=== PATIENT | female | born 1990 | race Caucasian/White ===

== ENCOUNTER 2018-03-05 12:43 | Inpatient (IN) ==
[2018-03-05] MEDS ORDERED: SODIUM CHLORIDE 0.9% 1,000 ML IV STA ×2 (13:30→15:47)
[2018-03-05] MEDS ORDERED: PANTOPRAZOLE 40 MG VIAL IV STA (13:30)
[2018-03-05] MEDS ORDERED: ONDANSETRON 4 MG/2 ML VIAL IV STA (13:30)
[2018-03-05 14:58] LABS: Basophils # 0.1 10*3/uL (0.0-0.2); Basophils % 0.8 % (0.0-0.8); Eosinophils # 0.1 10*3/uL (0.0-0.87); Eosinophils % 0.6 % (0.00-10.9); Hemoglobin 13.8 GM/DL (12.0-16.0); Immature Granulocytes % 0.2 %; Immature Granulocytes Absolute 0.02 #; Lymphocytes # 1.6 10*3/uL (1.4-4.0); Lymphocytes % 17.6 % (21.3-54.2); Mean Corpuscular HGB Conc 32.9 GM/DL (32-36); Mean Corpuscular Hemoglobin 30 PG (27-34); Mean Corpuscular Volume 90.7 FL (87-102); Mean Platelet Volume 11.2 FL (9.6-12.0); Monocytes # 0.4 10*3/uL (0.11-0.8); Neutrophils # 6.9 10*3/uL (1.4-7.4); Neutrophils % 76.8 % (38.7-73.9); Platelet Count 254 T/CUMM (130-400); Red Blood Count 4.63 MC/CUMM (3.8-5.5)
[2018-03-05 15:28] LABS: Apearance,Urine CLEAR (Clear); Bilirubin,Urine Negative (Negative); Blood, Urine Negative (Negative); Glucose,Urine (UA) >=500 mg/dL (Negative); Hyaline Casts,Urine 12 /LPF (0-3); Ketones,Urine 80 mg/dL (Negative); Mucus,Urine Occasional /LPF (Occasional); Nitrite,Urine Negative (Negative); Protein,Urine Negative; RBC,Urine <1 /HPF (0-4); Squamous Epithelial Cell,Urine Occasional /HPF (0-10); Urine Color Yellow (Yellow); Urine Specific Gravity 1.022 (1.001-1.035); Urine Urobilinogen < 2.0 EU/DL (0.2-1.0); WBC,Urine 2 /HPF (0-6)
[2018-03-05 15:30] LABS: Albumin 3.5 G/DL (3.4-5.0); Bilirubin,Total 0.9 MG/DL (0.2-1.0); Calcium 8.3 MG/DL (8.5-10.1); Osmolality,Calculated 276.2 MOS/KG (273-304); Potassium 4.6 MMOL/L (3.5-5.1); Total Protein 8.1 G/DL (6.4-8.3)
[2018-03-05] MEDS ORDERED: INSULIN REGULAR 100 UNIT/ML IV STA (15:47)
[2018-03-05] MEDS ORDERED: PROMETHAZINE 25 MG/1 ML VIAL ONE (16:44)
[2018-03-05 17:25] LABS: ABG Base Excess -17.5 MMOL/L (-2.5-2.5); ABG HCO3 11.8 MMOL/L (20-26); ABG PCO2 24.5 MM HG (35-48); ABG TCO2 8.6 MMOL/L (23-27)
[2018-03-05 17:27] LABS: ABG PH 7.201 (7.35-7.45)
[2018-03-05] MEDS ORDERED: DEXTROSE 50% 25 GM/50 ML SYRINGE IV PRN ×2 (20:28)
[2018-03-05] MEDS ORDERED: SODIUM PHOSPHATE IV PRN (20:28)
[2018-03-05] MEDS ORDERED: SODIUM BICARB INJ 100 MEQ in STERILE WATER INJ 400 ML IV PRN (20:28)
[2018-03-05] MEDS ORDERED: MAGNESIUM SULF RIDER 4 GM in PREMIX 1 EACH IV PRN (20:28)
[2018-03-05] MEDS ORDERED: SODIUM CHLORIDE 0.9% IV PRN (20:28)
[2018-03-05] MEDS ORDERED: SODIUM CHLORIDE 0.9% 1,000 ML IV ONE (20:28)
[2018-03-05] MEDS ORDERED: INSULIN REGULAR 100 UNIT/ML IV ONE (20:28)
[2018-03-05] MEDS ORDERED: MAGNESIUM SULF RIDER 2 GM in PREMIX 1 EACH IV PRN (20:28)
[2018-03-05] MEDS ORDERED: ONDANSETRON 4 MG/2 ML VIAL ONE (21:04)
[2018-03-05 21:12] LABS: Calcium 8.6 MG/DL (8.5-10.1); Osmolality,Calculated 273.2 MOS/KG (273-304); Potassium 4.4 MMOL/L (3.5-5.1)
[2018-03-05] MEDS: ONDANSETRON 4 MG/2 ML VIAL IV PRN (21:20)
[2018-03-05] MEDS: INSULIN REGULAR DRIP 100 ML IV SCH (21:35)
[2018-03-05] MEDS: traZODone 50 MG TABLET PO SCH (22:23)
[2018-03-05] MEDS: PANTOPRAZOLE 40 MG VIAL IV SCH (22:23)
[2018-03-05] MEDS ORDERED: SODIUM CHLORIDE 0.9% 1,000 ML IV SCH (22:26)
[2018-03-05] MEDS ORDERED: DEXTROSE 5% NACL 0.9% 1,000 ML IV SCH (22:30)
[2018-03-05] MEDS: SODIUM CHLORIDE 0.9% 1,000 ML IV SCH (23:24)
[2018-03-06] MEDS: SODIUM CHLORIDE 0.9% 1,000 ML IV SCH ×6 (00:19→17:01)
[2018-03-06] MEDS: DEXTROSE 5% NACL 0.9% 1,000 ML IV SCH ×3 (03:00→18:39)
[2018-03-06] MEDS: ONDANSETRON 4 MG/2 ML VIAL IV PRN ×2 (03:21→09:57)
[2018-03-06 03:34] LABS: Calcium 7.3 MG/DL (8.5-10.1); Osmolality,Calculated 281.3 MOS/KG (273-304); Potassium 3.5 MMOL/L (3.5-5.1)
[2018-03-06 04:35] LABS: Basophils # 0.1 10*3/uL (0.0-0.2); Basophils % 0.7 % (0.0-0.8); Eosinophils # 0.2 10*3/uL (0.0-0.87); Eosinophils % 1.7 % (0.00-10.9); Hematocrit 34.7 VOL% (35.7-47.0); Hemoglobin 11.4 GM/DL (12.0-16.0); Immature Granulocytes % 0.3 %; Immature Granulocytes Absolute 0.03 #; Lymphocytes # 2.3 10*3/uL (1.4-4.0); Lymphocytes % 25.6 % (21.3-54.2); Mean Corpuscular HGB Conc 32.9 GM/DL (32-36); Mean Corpuscular Hemoglobin 30 PG (27-34); Mean Corpuscular Volume 90.6 FL (87-102); Mean Platelet Volume 10.8 FL (9.6-12.0); Monocytes # 0.9 10*3/uL (0.11-0.8); Monocytes % 9.9 % (1.7-12.7); Neutrophils # 5.6 10*3/uL (1.4-7.4); Neutrophils % 61.8 % (38.7-73.9); Platelet Count 222 T/CUMM (130-400); Red Blood Count 3.83 MC/CUMM (3.8-5.5); Red Cell Distribution Width 12.2 % (9.3-17.3); White Blood Count 9.1 T/CUMM (4-12)
[2018-03-06 05:17] LABS: Calcium 7.3 MG/DL (8.5-10.1); Osmolality,Calculated 278.4 MOS/KG (273-304); Potassium 3.8 MMOL/L (3.5-5.1)
[2018-03-06] MEDS: POTASSIUM CHLORIDE RIDER 10 MEQ in PREMIX 1 EACH IV PRN (07:26)
[2018-03-06] MEDS: INSULIN REGULAR DRIP 100 ML IV SCH ×2 (07:31→23:23)
[2018-03-06 08:16] LABS: Calcium 7.4 MG/DL (8.5-10.1); Osmolality,Calculated 278.3 MOS/KG (273-304); Potassium 3.5 MMOL/L (3.5-5.1)
[2018-03-06] MEDS ORDERED: LINACLOTIDE 72 MCG PO SCH (09:00)
[2018-03-06] MEDS: PANTOPRAZOLE 40 MG VIAL IV SCH ×2 (09:01→21:44)
[2018-03-06] MEDS: GABAPENTIN 300 MG CAPSULE PO SCH ×3 (09:01→21:43)
[2018-03-06] MEDS: DEXT 5% NACL 0.45% KCL 20 MEQ 20 MEQ/1,000 ML BAG IV SCH ×3 (10:01→17:01)
[2018-03-06] MEDS ORDERED: SODIUM CHLORIDE 0.45% 1,000 ML IV SCH (10:26)
[2018-03-06] MEDS: IBUPROFEN 600 MG TABLET PO PRN (12:00)
[2018-03-06] MEDS: SODIUM CHLOR 0.45% KCL 20 MEQ 20 MEQ/1,000 ML BAG IV SCH ×2 (12:00→17:01)
[2018-03-06 13:09] LABS: Calcium 7.8 MG/DL (8.5-10.1); Osmolality,Calculated 280.7 MOS/KG (273-304); Potassium 3.7 MMOL/L (3.5-5.1)
[2018-03-06] MEDS ORDERED: INSULIN GLARGINE 100 UNIT/ML SUBCUT PRN (16:14)
[2018-03-06 16:40] LABS: Calcium 7.9 MG/DL (8.5-10.1); Osmolality,Calculated 276.1 MOS/KG (273-304); Potassium 3.5 MMOL/L (3.5-5.1)
[2018-03-06] MEDS: traZODone 50 MG TABLET PO SCH (21:43)
[2018-03-07] MEDS: DEXTROSE 5% NACL 0.9% 1,000 ML IV SCH ×2 (02:47→18:19)
[2018-03-07 06:29] LABS: Calcium 7.5 MG/DL (8.5-10.1); Osmolality,Calculated 287.8 MOS/KG (273-304); Potassium 3.6 MMOL/L (3.5-5.1)
[2018-03-07] MEDS: POTASSIUM CHLORIDE RIDER 10 MEQ in PREMIX 1 EACH IV PRN (07:17)
[2018-03-07] MEDS: IBUPROFEN 600 MG TABLET PO PRN ×2 (09:23→15:02)
[2018-03-07] MEDS: PANTOPRAZOLE 40 MG TABLET PO SCH ×2 (09:25→21:26)
[2018-03-07] MEDS: GABAPENTIN 300 MG CAPSULE PO SCH ×3 (09:25→21:26)
[2018-03-07] MEDS: INSULIN LISPRO 100 UNIT/ML SUBCUT SCH ×3 (11:09→21:27)
[2018-03-07] MEDS ORDERED: INSULIN GLARGINE 100 UNIT/ML SUBCUT SCH (21:00)
[2018-03-07] MEDS: traZODone 50 MG TABLET PO SCH (21:26)
[2018-03-08] MEDS: INSULIN LISPRO 100 UNIT/ML SUBCUT SCH (07:56)
[2018-03-08 08:02] VITALS: BP 111/55
[2018-03-08] MEDS: PANTOPRAZOLE 40 MG TABLET PO SCH (08:21)
[2018-03-08] MEDS: GABAPENTIN 300 MG CAPSULE PO SCH (08:21)
== END 2018-03-08 11:45 | disposition home or self-care (01) | DRG 420 ==
LOC: EDUNIT# → EDBD → N.ED 12:43 → SUATTDRO 17:21 → N.EDINP 17:21 → N.CC 19:38 → N.4E 03-07 18:22
PROVIDERS: ADMIT Internal Medicine; ATTEND Internal Medicine

== ENCOUNTER 2021-02-09 16:33 | Inpatient (IN) ==
[2021-02-09] MEDS ORDERED: PROMETHAZINE 25 MG/1 ML VIAL ONE (21:05)
[2021-02-09] MEDS ORDERED: ONDANSETRON 4 MG/2 ML VIAL ONE ×2 (21:05→21:12)
[2021-02-09] MEDS ORDERED: PROMETHAZINE 25 MG/1 ML VIAL IM STA (21:10)
[2021-02-09] MEDS ORDERED: ONDANSETRON 4 MG/2 ML VIAL IV STA ×2 (21:10→22:08)
[2021-02-09] MEDS ORDERED: INSULIN REGULAR 100 UNIT/ML SUBCUT STA (21:27)
[2021-02-09] MEDS ORDERED: SODIUM CHLORIDE 0.9% 1,000 ML IV SCH (21:30)
[2021-02-09 22:01] LABS: Basophils % 0.2 % (0.0-0.8); Eosinophils % 0.2 % (0.00-10.9); Hematocrit 32.5 VOL% (35.7-47.0); Hemoglobin 10.9 GM/DL (12.0-16.0); Immature Granulocytes % 0.6 %; Immature Granulocytes Absolute 0.11 #; Lymphocytes # 0.7 10*3/uL (1.4-4.0); Lymphocytes % 3.9 % (21.3-54.2); Mean Corpuscular HGB Conc 33.5 GM/DL (32-36); Mean Corpuscular Volume 90.5 FL (87-102); Mean Platelet Volume 10.4 FL (9.6-12.0); Neutrophils % 94.1 % (38.7-73.9); Platelet Count 299 T/CUMM (130-400); Red Blood Count 3.59 MC/CUMM (3.8-5.5); Red Cell Distribution Width 12.4 % (9.3-17.3); White Blood Count 17.1 T/CUMM (4-12)
[2021-02-09] MEDS ORDERED: METOCLOPRAMIDE 10 MG/2 ML VIAL IV STA (22:07)
[2021-02-09 22:30] LABS: ABG Base Excess -11.1 MMOL/L (-2.5-2.5); ABG HCO3 15.8 MMOL/L (20-26); ABG Oxygen Saturation 97.8 % (95-100); ABG PCO2 26.1 MM HG (35-48); ABG PH 7.325 (7.35-7.45); Allen Test Positive; Pt O2 Delivery Device Room Air
[2021-02-09 22:34] LABS: Albumin 2.1 G/DL (3.4-5.0); Bilirubin,Total 0.6 MG/DL (0.20-1.00); Calcium 6.7 MG/DL (8.5-10.1); Hypochromia Slight; Lymphocytes 5 % (20-55); Platelet Estimate Normal; Potassium 2.9 MMOL/L (3.5-5.1); Segmented Neutrophils 93 % (50-85); Total Cells Counted 100; Total Protein 6.1 G/DL (6.4-8.2)
[2021-02-09] MEDS ORDERED: POTASSIUM CHLORIDE RIDER 20 MEQ/100 ML PREMIX IV STA (22:36)
[2021-02-09] MEDS ORDERED: POTASSIUM CHLORIDE RIDER 20 MEQ/200 ML PREMIX IV STA (22:39)
[2021-02-10] MEDS ORDERED: SCOPOLAMINE 1.5 MG PATCH TRANSDERM ONE (01:00)
[2021-02-10 01:09] LABS: Bilirubin,Urine Negative (Negative); Blood, Urine Negative (Negative); Glucose,Urine (UA) >=500 mg/dL (Negative); Ketones,Urine 80 mg/dL (Negative); Mucus,Urine Occasional /LPF (Occasional); Nitrite,Urine Negative (Negative); Protein,Urine 30 MG/DL; RBC,Urine 2 /HPF (0-4); Squamous Epithelial Cell,Urine Occasional /HPF (0-10); Urine Appearance CLEAR (Clear); Urine Color Yellow (Yellow); Urine Specific Gravity 1.024 (1.001-1.035); Urine Urobilinogen < 2.0 EU/DL (<2.0)
[2021-02-10 01:12] LABS: Albumin 2.8 G/DL (3.4-5.0); Bilirubin,Total 0.6 MG/DL (0.20-1.00); Calcium 8.1 MG/DL (8.5-10.1); Osmolality,Calculated 285.5 MOS/KG (273-304); Potassium 3.4 MMOL/L (3.5-5.1); Total Protein 7.5 G/DL (6.4-8.2)
[2021-02-10] MEDS ORDERED: SODIUM CHLORIDE 0.9% 1,000 ML IV SCH (01:12)
[2021-02-10] MEDS ORDERED: PROMETHAZINE 25 MG SUPP RECTAL PRN (01:12)
[2021-02-10] MEDS ORDERED: BISACODYL 10 MG SUPP RECTAL PRN (01:12)
[2021-02-10] MEDS ORDERED: MAGNESIUM HYDROXIDE SUSP 30 ML UDCUP PO PRN (01:12)
[2021-02-10] MEDS ORDERED: ACETAMINOPHEN 325 MG TABLET PO PRN (01:12)
[2021-02-10] MEDS ORDERED: PROMETHAZINE 25 MG/1 ML VIAL IM ONE (01:20)
[2021-02-10] MEDS: SCOPOLAMINE 1.5 MG PATCH TRANSDERM SCH (01:24)
[2021-02-10] MEDS ORDERED: DEXTROSE 50% 25 GM/50 ML SYRINGE IV PRN (01:41)
[2021-02-10 01:54] LABS: ABG Base Excess -11.1 MMOL/L (-2.5-2.5); ABG HCO3 15.8 MMOL/L (20-26); ABG Oxygen Saturation 97.8 % (95-100); ABG PCO2 24.5 MM HG (35-48); ABG TCO2 11.7 MMOL/L (23-27)
[2021-02-10] MEDS ORDERED: INFLUENZA VIRUS VACCINE 0.5 ML SYRINGE IM ONE (02:06)
[2021-02-10] MEDS ORDERED: PANTOPRAZOLE 40 MG VIAL IV ONE (02:44)
[2021-02-10] MEDS ORDERED: SODIUM BICARB INJ 50 MEQ in SODIUM CHLORIDE 0.45% 1,000 ML IV SCH (03:00)
[2021-02-10] MEDS: INSULIN REGULAR 100 UNIT/ML SUBCUT SCH ×4 (03:08→17:25)
[2021-02-10] MEDS: PROMETHAZINE 25 MG/1 ML VIAL IM PRN ×3 (03:10→21:07)
[2021-02-10] MEDS: ONDANSETRON 4 MG/2 ML VIAL IV SCH ×5 (04:00→20:46)
[2021-02-10 04:53] LABS: Basophils % 0.2 % (0.0-0.8); Hematocrit 38.8 VOL% (35.7-47.0); Hemoglobin 12.7 GM/DL (12.0-16.0); Immature Granulocytes % 0.5 %; Lymphocytes # 0.8 10*3/uL (1.4-4.0); Lymphocytes % 3.9 % (21.3-54.2); Mean Corpuscular HGB Conc 32.7 GM/DL (32-36); Mean Corpuscular Volume 91.3 FL (87-102); Mean Platelet Volume 10.2 FL (9.6-12.0); Monocytes % 1.8 % (1.7-12.7); Neutrophils % 93.6 % (38.7-73.9); Platelet Count 371 T/CUMM (130-400); Red Blood Count 4.25 MC/CUMM (3.8-5.5); Red Cell Distribution Width 12.6 % (9.3-17.3); White Blood Count 20.5 T/CUMM (4-12)
[2021-02-10 05:11] LABS: Albumin 3.2 G/DL (3.4-5.0); Bilirubin,Total 0.7 MG/DL (0.20-1.00); Calcium 9.1 MG/DL (8.5-10.1); Osmolality,Calculated 280.7 MOS/KG (273-304); Total Protein 8.5 G/DL (6.4-8.2)
[2021-02-10 05:23] LABS: Band Neutrophils 2 % (0-10); Lymphocytes 3 % (20-55); Segmented Neutrophils 93 % (50-85); Total Cells Counted 100
[2021-02-10 05:24] LABS: Platelet Estimate Normal
[2021-02-10] MEDS: METOCLOPRAMIDE 10 MG/2 ML VIAL IV PRN ×2 (06:57→18:10)
[2021-02-10] MEDS: MAGNESIUM OXIDE 400 MG TABLET PO SCH ×2 (07:57→09:39)
[2021-02-10] MEDS ORDERED: FAMOTIDINE INJ 40 MG in SODIUM CHLORIDE 0.9% 100 ML IV SCH (10:00)
[2021-02-10 11:08] LABS: Calcium 8.9 MG/DL (8.5-10.1); Osmolality,Calculated 280.4 MOS/KG (273-304); Potassium 3.5 MMOL/L (3.5-5.1)
[2021-02-10] MEDS: DOCUSATE SODIUM 100 MG CAPSULE PO SCH ×2 (11:19→21:00)
[2021-02-10] MEDS: SODIUM BICARB INJ 50 MEQ in SODIUM CHLORIDE 0.45% 1,000 ML IV SCH ×2 (11:30→17:41)
[2021-02-10] MEDS: PANTOPRAZOLE 40 MG VIAL IV SCH ×2 (12:27→20:55)
[2021-02-10] MEDS ORDERED: ALUMINUM/MAGNES/SIMETH MAX STR 30 ML UDCUP PO PRN (12:58)
[2021-02-10] MEDS ORDERED: MEPERIDINE 50 MG/1 ML VIAL IV ONE ×2 (13:30→21:00)
[2021-02-10 16:53] LABS: Calcium 8.5 MG/DL (8.5-10.1); Osmolality,Calculated 279.3 MOS/KG (273-304); Potassium 3.3 MMOL/L (3.5-5.1)
[2021-02-10] MEDS ORDERED: INSULIN ASPART U 100 UNIT/ML SUBCUT SCH (17:00)
[2021-02-10] MEDS ORDERED: [UNRECOGNIZED DRUG - OTHER] SUBCUT SCH (17:00)
[2021-02-10] MEDS: INSULIN GLARGINE 100 UNIT/ML SUBCUT SCH (21:02)
[2021-02-11] MEDS: METOCLOPRAMIDE 10 MG/2 ML VIAL IV PRN ×4 (00:02→20:01)
[2021-02-11] MEDS: ONDANSETRON 4 MG/2 ML VIAL IV SCH ×6 (00:08→19:56)
[2021-02-11] MEDS: INSULIN REGULAR 100 UNIT/ML SUBCUT SCH ×4 (00:09→18:51)
[2021-02-11] MEDS: SODIUM BICARB INJ 50 MEQ in SODIUM CHLORIDE 0.45% 1,000 ML IV SCH ×3 (00:23→18:45)
[2021-02-11] MEDS: PROMETHAZINE 25 MG/1 ML VIAL IM PRN ×2 (03:13→22:59)
[2021-02-11 06:03] LABS: Basophils % 0.2 % (0.0-0.8); Eosinophils % 0.2 % (0.00-10.9); Hematocrit 34.4 VOL% (35.7-47.0); Hemoglobin 11.3 GM/DL (12.0-16.0); Immature Granulocytes % 0.5 %; Immature Granulocytes Absolute 0.09 #; Lymphocytes # 1.5 10*3/uL (1.4-4.0); Lymphocytes % 7.4 % (21.3-54.2); Mean Corpuscular HGB Conc 32.8 GM/DL (32-36); Mean Corpuscular Volume 90.8 FL (87-102); Mean Platelet Volume 10.7 FL (9.6-12.0); Monocytes % 4.6 % (1.7-12.7); Neutrophils % 87.1 % (38.7-73.9); Platelet Count 340 T/CUMM (130-400); Red Blood Count 3.79 MC/CUMM (3.8-5.5); Red Cell Distribution Width 12.8 % (9.3-17.3); White Blood Count 19.7 T/CUMM (4-12)
[2021-02-11 06:19] LABS: Albumin 2.7 G/DL (3.4-5.0); Bilirubin,Total 0.8 MG/DL (0.20-1.00); Calcium 8.6 MG/DL (8.5-10.1); Osmolality,Calculated 273.8 MOS/KG (273-304); Potassium 3.1 MMOL/L (3.5-5.1); Total Protein 7.3 G/DL (6.4-8.2)
[2021-02-11] MEDS: PANTOPRAZOLE 40 MG VIAL IV SCH ×2 (08:42→21:56)
[2021-02-11] MEDS: MAGNESIUM OXIDE 400 MG TABLET PO SCH (09:59)
[2021-02-11] MEDS: DOCUSATE SODIUM 100 MG CAPSULE PO SCH ×2 (09:59→21:05)
[2021-02-11] MEDS: PROMETHAZINE 12.5 MG SUPP RECTAL PRN (10:00)
[2021-02-11] MEDS: INSULIN LISPRO 100 UNIT/ML SUBCUT SCH ×2 (10:08→13:07)
[2021-02-11] MEDS: POTASSIUM CHLORIDE RIDER 10 MEQ/100 ML PREMIX IV PRN ×4 (12:35→15:42)
[2021-02-11] MEDS: POTASSIUM CHLORIDE 20 MEQ TABLET PO SCH (18:45)
[2021-02-11] MEDS: CALCIUM ACETATE 667 MG CAPSULE PO SCH (18:55)
[2021-02-11] MEDS: INSULIN GLARGINE 100 UNIT/ML SUBCUT SCH (21:52)
[2021-02-12] MEDS: INSULIN REGULAR 100 UNIT/ML SUBCUT SCH ×4 (00:08→19:06)
[2021-02-12] MEDS: ONDANSETRON 4 MG/2 ML VIAL IV SCH ×4 (00:12→13:50)
[2021-02-12] MEDS: SODIUM BICARB INJ 50 MEQ in SODIUM CHLORIDE 0.45% 1,000 ML IV SCH ×3 (03:32→20:34)
[2021-02-12 06:02] LABS: Basophils % 0.2 % (0.0-0.8); Eosinophils % 0.3 % (0.00-10.9); Hematocrit 30.5 VOL% (35.7-47.0); Hemoglobin 10.4 GM/DL (12.0-16.0); Immature Granulocytes % 0.7 %; Immature Granulocytes Absolute 0.09 #; Lymphocytes # 2.2 10*3/uL (1.4-4.0); Lymphocytes % 18.1 % (21.3-54.2); Mean Corpuscular HGB Conc 34.1 GM/DL (32-36); Mean Corpuscular Volume 88.4 FL (87-102); Mean Platelet Volume 10.3 FL (9.6-12.0); Monocytes % 7.2 % (1.7-12.7); Neutrophils % 73.5 % (38.7-73.9); Platelet Count 295 T/CUMM (130-400); Red Blood Count 3.45 MC/CUMM (3.8-5.5); Red Cell Distribution Width 12.7 % (9.3-17.3); White Blood Count 12.3 T/CUMM (4-12)
[2021-02-12 06:23] LABS: Albumin 2.6 G/DL (3.4-5.0); Bilirubin,Total 1.1 MG/DL (0.20-1.00); Calcium 8.4 MG/DL (8.5-10.1); Osmolality,Calculated 270.8 MOS/KG (273-304); Potassium 2.9 MMOL/L (3.5-5.1); Total Protein 6.9 G/DL (6.4-8.2)
[2021-02-12] MEDS: PANTOPRAZOLE 40 MG VIAL IV SCH ×2 (10:11→22:43)
[2021-02-12] MEDS: PROMETHAZINE 25 MG/1 ML VIAL IM PRN (10:26)
[2021-02-12] MEDS: POTASSIUM CHLORIDE RIDER 10 MEQ/100 ML PREMIX IV SCH ×2 (10:27→12:22)
[2021-02-12] MEDS: INSULIN LISPRO 100 UNIT/ML SUBCUT SCH ×4 (12:17→19:05)
[2021-02-12] MEDS: CALCIUM ACETATE 667 MG CAPSULE PO SCH ×2 (12:24→19:05)
[2021-02-12] MEDS: DOCUSATE SODIUM 100 MG CAPSULE PO SCH ×2 (12:24→19:54)
[2021-02-12] MEDS: POTASSIUM CHLORIDE 20 MEQ TABLET PO SCH (12:24)
[2021-02-12] MEDS: MAGNESIUM OXIDE 400 MG TABLET PO SCH (12:26)
[2021-02-12] MEDS: POTASSIUM CHLORIDE RIDER 10 MEQ/100 ML PREMIX IV PRN ×3 (13:56→19:01)
[2021-02-12] MEDS: METOCLOPRAMIDE 10 MG/2 ML VIAL IV SCH ×2 (16:07→22:37)
[2021-02-12] MEDS: PROMETHAZINE 25 MG/1 ML VIAL IM SCH ×2 (16:48→22:28)
[2021-02-12] MEDS: ONDANSETRON 4 MG/2 ML VIAL IV PRN (21:10)
[2021-02-12] MEDS: INSULIN GLARGINE 100 UNIT/ML SUBCUT SCH (22:44)
[2021-02-13] MEDS: INSULIN REGULAR 100 UNIT/ML SUBCUT SCH ×4 (00:14→18:43)
[2021-02-13] MEDS: PROMETHAZINE 25 MG/1 ML VIAL IM SCH ×4 (03:55→22:25)
[2021-02-13] MEDS: SODIUM BICARB INJ 50 MEQ in SODIUM CHLORIDE 0.45% 1,000 ML IV SCH (04:01)
[2021-02-13 05:36] LABS: Basophils % 0.4 % (0.0-0.8); Eosinophils # 0.1 10*3/uL (0.0-0.87); Eosinophils % 0.7 % (0.00-10.9); Hematocrit 31.9 VOL% (35.7-47.0); Hemoglobin 10.8 GM/DL (12.0-16.0); Immature Granulocytes % 0.5 %; Immature Granulocytes Absolute 0.06 #; Lymphocytes # 2.1 10*3/uL (1.4-4.0); Lymphocytes % 19.6 % (21.3-54.2); Mean Corpuscular HGB Conc 33.9 GM/DL (32-36); Mean Corpuscular Volume 88.6 FL (87-102); Mean Platelet Volume 10.4 FL (9.6-12.0); Monocytes % 8.6 % (1.7-12.7); Neutrophils % 70.2 % (38.7-73.9); Platelet Count 283 T/CUMM (130-400); Red Cell Distribution Width 12.4 % (9.3-17.3); White Blood Count 10.9 T/CUMM (4-12)
[2021-02-13 05:48] LABS: Albumin 2.1 G/DL (3.4-5.0); Bilirubin,Total 1.2 MG/DL (0.20-1.00); Osmolality,Calculated 268.8 MOS/KG (273-304); Potassium 2.8 MMOL/L (3.5-5.1); Total Protein 6.1 G/DL (6.4-8.2)
[2021-02-13] MEDS: METOCLOPRAMIDE 10 MG/2 ML VIAL IV SCH ×3 (05:53→22:36)
[2021-02-13] MEDS ORDERED: SODIUM CHLOR 0.9% KCL 40 MEQ 40 MEQ/1,000 ML BAG IV SCH (08:00)
[2021-02-13] MEDS ORDERED: POTASSIUM PHOSPHATE 30 MMOL in SODIUM CHLORIDE 0.9% 250 ML IV ONE (08:00)
[2021-02-13] MEDS: PANTOPRAZOLE 40 MG VIAL IV SCH ×2 (08:40→21:06)
[2021-02-13] MEDS: SCOPOLAMINE 1.5 MG PATCH TRANSDERM SCH (08:40)
[2021-02-13] MEDS: POTASSIUM CHLORIDE RIDER 10 MEQ/100 ML PREMIX IV PRN ×5 (08:42→14:45)
[2021-02-13] MEDS ORDERED: DEXTROSE 5% LACTATED RINGERS 1,000 ML IV SCH (09:00)
[2021-02-13] MEDS: CALCIUM ACETATE 667 MG CAPSULE PO SCH ×3 (10:00→17:56)
[2021-02-13] MEDS: INSULIN LISPRO 100 UNIT/ML SUBCUT SCH ×3 (10:00→17:57)
[2021-02-13] MEDS: DOCUSATE SODIUM 100 MG CAPSULE PO SCH ×2 (10:01→21:00)
[2021-02-13] MEDS: MAGNESIUM OXIDE 400 MG TABLET PO SCH (10:01)
[2021-02-13] MEDS: POTASSIUM CHLORIDE 20 MEQ TABLET PO SCH (10:01)
[2021-02-13 14:02] LABS: Potassium 3.1 MMOL/L (3.5-5.1)
[2021-02-13] MEDS ORDERED: LACTATED RINGERS 1,000 ML IV SCH (18:00)
[2021-02-13] MEDS ORDERED: SODIUM CHLORIDE 0.9% 1,000 ML IV SCH (19:00)
[2021-02-13] MEDS: ONDANSETRON 4 MG/2 ML VIAL IV PRN (20:59)
[2021-02-13] MEDS: INSULIN GLARGINE 100 UNIT/ML SUBCUT SCH (22:25)
[2021-02-13] MEDS: POTASSIUM CHLORIDE INJ 20 MEQ, MAGNESIUM SULF INJ 2 GM in SODIUM CHLORIDE 0.45% 1,000 ML IV SCH (23:20)
[2021-02-14] MEDS: INSULIN REGULAR 100 UNIT/ML SUBCUT SCH ×4 (00:01→18:36)
[2021-02-14] MEDS: PROMETHAZINE 25 MG/1 ML VIAL IM SCH ×4 (04:21→22:40)
[2021-02-14] MEDS: METOCLOPRAMIDE 10 MG/2 ML VIAL IV SCH ×3 (06:11→22:36)
[2021-02-14 07:49] LABS: Calcium 7.7 MG/DL (8.5-10.1); Osmolality,Calculated 265.8 MOS/KG (273-304); Potassium 2.8 MMOL/L (3.5-5.1)
[2021-02-14] MEDS: POTASSIUM CHLORIDE INJ 20 MEQ, MAGNESIUM SULF INJ 2 GM in SODIUM CHLORIDE 0.45% 1,000 ML IV SCH ×2 (07:50→16:01)
[2021-02-14] MEDS ORDERED: LACTATED RINGERS 1,000 ML IV SCH ×2 (08:30→20:30)
[2021-02-14] MEDS: POTASSIUM CHLORIDE RIDER 10 MEQ/100 ML PREMIX IV PRN ×10 (08:47→23:39)
[2021-02-14] MEDS: ONDANSETRON 4 MG/2 ML VIAL IV PRN (09:03)
[2021-02-14] MEDS: PANTOPRAZOLE 40 MG VIAL IV SCH ×2 (09:05→22:31)
[2021-02-14] MEDS: GLUCAGON 1 MG VIAL IM PRN (10:24)
[2021-02-14] MEDS: INSULIN LISPRO 100 UNIT/ML SUBCUT SCH ×2 (15:34→18:36)
[2021-02-14] MEDS: DOCUSATE SODIUM 100 MG CAPSULE PO SCH ×2 (15:35→21:00)
[2021-02-14] MEDS: CALCIUM ACETATE 667 MG CAPSULE PO SCH ×2 (15:35→18:36)
[2021-02-14] MEDS: POTASSIUM CHLORIDE 20 MEQ TABLET PO SCH (15:36)
[2021-02-14] MEDS: MAGNESIUM OXIDE 400 MG TABLET PO SCH (15:57)
[2021-02-14] MEDS ORDERED: ACETAMINOPHEN 650 MG SUPP RECTAL PRN (16:44)
[2021-02-14] MEDS: INSULIN GLARGINE 100 UNIT/ML SUBCUT SCH (21:38)
[2021-02-15] MEDS: INSULIN REGULAR 100 UNIT/ML SUBCUT SCH ×2 (00:20→06:20)
[2021-02-15 03:16] LABS: Basophils % 0.3 % (0.0-0.8); Eosinophils # 0.3 10*3/uL (0.0-0.87); Eosinophils % 2.8 % (0.00-10.9); Hematocrit 32.2 VOL% (35.7-47.0); Hemoglobin 10.9 GM/DL (12.0-16.0); Immature Granulocytes % 0.5 %; Immature Granulocytes Absolute 0.05 #; Lymphocytes # 2.9 10*3/uL (1.4-4.0); Lymphocytes % 28.8 % (21.3-54.2); Mean Corpuscular HGB Conc 33.9 GM/DL (32-36); Mean Corpuscular Volume 89.4 FL (87-102); Mean Platelet Volume 10.2 FL (9.6-12.0); Monocytes % 7.3 % (1.7-12.7); Neutrophils % 60.3 % (38.7-73.9); Platelet Count 274 T/CUMM (130-400); Red Cell Distribution Width 12.9 % (9.3-17.3); White Blood Count 10.1 T/CUMM (4-12)
[2021-02-15 03:34] LABS: Calcium 7.5 MG/DL (8.5-10.1); Osmolality,Calculated 273.3 MOS/KG (273-304); Potassium 3.5 MMOL/L (3.5-5.1)
[2021-02-15] MEDS: POTASSIUM CHLORIDE INJ 20 MEQ, MAGNESIUM SULF INJ 2 GM in SODIUM CHLORIDE 0.45% 1,000 ML IV SCH (04:08)
[2021-02-15] MEDS: PROMETHAZINE 25 MG/1 ML VIAL IM SCH ×4 (05:05→21:38)
[2021-02-15] MEDS: METOCLOPRAMIDE 10 MG/2 ML VIAL IV SCH ×3 (06:15→21:46)
[2021-02-15] MEDS: INSULIN LISPRO 100 UNIT/ML SUBCUT SCH ×3 (08:04→19:01)
[2021-02-15] MEDS: PANTOPRAZOLE 40 MG VIAL IV SCH ×2 (10:13→20:47)
[2021-02-15] MEDS: POTASSIUM CHLORIDE 20 MEQ TABLET PO SCH (10:59)
[2021-02-15] MEDS: CALCIUM ACETATE 667 MG CAPSULE PO SCH ×3 (10:59→18:53)
[2021-02-15] MEDS: MAGNESIUM OXIDE 400 MG TABLET PO SCH (10:59)
[2021-02-15] MEDS: DOCUSATE SODIUM 100 MG CAPSULE PO SCH ×2 (10:59→23:24)
[2021-02-15] MEDS: GLUCAGON 1 MG VIAL IM PRN (12:14)
[2021-02-15] MEDS ORDERED: propofoL 200 MG/20 ML VIAL IV ONE (12:54)
[2021-02-15] MEDS ORDERED: LIDOCAINE 2% 5 ML VIAL ONE (12:54)
[2021-02-15] MEDS: DEXTROSE 5% LACTATED RINGERS 1,000 ML IV SCH (13:50)
[2021-02-15] MEDS ORDERED: GLUCAGON 1 MG VIAL IM PRN ×2 (18:22→18:44)
[2021-02-15] MEDS ORDERED: DEXTROSE 50% 25 GM/50 ML SYRINGE IV PRN ×2 (18:26→18:51)
[2021-02-15] MEDS ORDERED: AMINO ACIDS/DEXT/LYTES 4.25-5% 2,000 ML IV SCH (20:00)
[2021-02-15] MEDS ORDERED: INSULIN GLARGINE 100 UNIT/ML SUBCUT SCH (21:00)
[2021-02-15] MEDS: INSULIN GLARGINE 100 UNIT/ML SUBCUT SCH (23:25)
[2021-02-16] MEDS ORDERED: INSULIN LISPRO 100 UNIT/ML SUBCUT SCH
[2021-02-16] MEDS: INSULIN LISPRO 100 UNIT/ML SUBCUT SCH ×5 (00:38→23:07)
[2021-02-16] MEDS: PROMETHAZINE 25 MG/1 ML VIAL IM SCH ×4 (03:49→22:08)
[2021-02-16 05:05] LABS: Basophils % 0.3 % (0.0-0.8); Eosinophils # 0.1 10*3/uL (0.0-0.87); Eosinophils % 1.2 % (0.00-10.9); Hemoglobin 10.9 GM/DL (12.0-16.0); Immature Granulocytes % 0.6 %; Immature Granulocytes Absolute 0.07 #; Lymphocytes # 1.8 10*3/uL (1.4-4.0); Lymphocytes % 15.5 % (21.3-54.2); Mean Corpuscular HGB Conc 34.1 GM/DL (32-36); Mean Corpuscular Volume 89.4 FL (87-102); Mean Platelet Volume 10.3 FL (9.6-12.0); Monocytes % 6.2 % (1.7-12.7); Neutrophils % 76.2 % (38.7-73.9); Platelet Count 307 T/CUMM (130-400); Red Blood Count 3.58 MC/CUMM (3.8-5.5); Red Cell Distribution Width 13.2 % (9.3-17.3); White Blood Count 11.8 T/CUMM (4-12)
[2021-02-16 05:28] LABS: Calcium 7.9 MG/DL (8.5-10.1); Potassium 3.5 MMOL/L (3.5-5.1)
[2021-02-16] MEDS: METOCLOPRAMIDE 10 MG/2 ML VIAL IV SCH ×3 (05:54→22:20)
[2021-02-16] MEDS: DEXTROSE 5% LACTATED RINGERS 1,000 ML IV SCH ×3 (06:09→14:24)
[2021-02-16] MEDS: PANTOPRAZOLE 40 MG VIAL IV SCH ×2 (08:13→21:13)
[2021-02-16] MEDS: SCOPOLAMINE 1.5 MG PATCH TRANSDERM SCH (08:14)
[2021-02-16] MEDS: ONDANSETRON 4 MG/2 ML VIAL IV PRN ×2 (08:21→22:59)
[2021-02-16] MEDS: DOCUSATE SODIUM 100 MG CAPSULE PO SCH ×2 (08:28→21:18)
[2021-02-16] MEDS: CALCIUM ACETATE 667 MG CAPSULE PO SCH ×3 (08:28→17:25)
[2021-02-16] MEDS: MAGNESIUM OXIDE 400 MG TABLET PO SCH (08:28)
[2021-02-16] MEDS: POTASSIUM CHLORIDE 20 MEQ TABLET PO SCH (08:28)
[2021-02-16] MEDS: AMINO ACIDS/DEXT/LYTES 4.25-5% 2,000 ML IV SCH (18:13)
[2021-02-16] MEDS: INSULIN GLARGINE 100 UNIT/ML SUBCUT SCH ×2 (18:16→21:18)
[2021-02-16] MEDS: FAT EMULSION 20% 250 ML IV SCH (18:37)
[2021-02-17] MEDS: PROMETHAZINE 25 MG/1 ML VIAL IM SCH ×4 (03:47→21:34)
[2021-02-17] MEDS: AMINO ACIDS/DEXT/LYTES 4.25-5% 2,000 ML IV SCH ×2 (04:42→22:34)
[2021-02-17 05:14] LABS: Basophils # 0.1 10*3/uL (0.0-0.2); Basophils % 0.5 % (0.0-0.8); Eosinophils # 0.3 10*3/uL (0.0-0.87); Eosinophils % 3.2 % (0.00-10.9); Hematocrit 31.4 VOL% (35.7-47.0); Hemoglobin 10.4 GM/DL (12.0-16.0); Immature Granulocytes % 0.7 %; Immature Granulocytes Absolute 0.07 #; Lymphocytes # 2.1 10*3/uL (1.4-4.0); Lymphocytes % 21.2 % (21.3-54.2); Mean Corpuscular HGB Conc 33.1 GM/DL (32-36); Mean Corpuscular Volume 90.5 FL (87-102); Mean Platelet Volume 11.1 FL (9.6-12.0); Monocytes % 10.7 % (1.7-12.7); Neutrophils % 63.7 % (38.7-73.9); Platelet Count 289 T/CUMM (130-400); Red Blood Count 3.47 MC/CUMM (3.8-5.5); Red Cell Distribution Width 13.1 % (9.3-17.3); White Blood Count 9.8 T/CUMM (4-12)
[2021-02-17 05:29] LABS: Calcium 7.8 MG/DL (8.5-10.1); Osmolality,Calculated 277.8 MOS/KG (273-304); Potassium 3.7 MMOL/L (3.5-5.1)
[2021-02-17] MEDS: METOCLOPRAMIDE 10 MG/2 ML VIAL IV SCH ×3 (05:59→21:47)
[2021-02-17] MEDS: INSULIN LISPRO 100 UNIT/ML SUBCUT SCH ×3 (06:03→17:53)
[2021-02-17] MEDS: PANTOPRAZOLE 40 MG VIAL IV SCH ×2 (08:39→21:40)
[2021-02-17] MEDS: ONDANSETRON 4 MG/2 ML VIAL IV PRN (08:45)
[2021-02-17] MEDS: MAGNESIUM OXIDE 400 MG TABLET PO SCH (09:52)
[2021-02-17] MEDS: DOCUSATE SODIUM 100 MG CAPSULE PO SCH ×2 (09:52→21:15)
[2021-02-17] MEDS: POTASSIUM CHLORIDE 20 MEQ TABLET PO SCH (09:52)
[2021-02-17] MEDS: CALCIUM ACETATE 667 MG CAPSULE PO SCH ×3 (09:53→17:15)
[2021-02-17] MEDS ORDERED: MAGNESIUM SULF RIDER 2 GM/50 ML PREMIX IV ONE (13:33)
[2021-02-17] MEDS: FAT EMULSION 20% 250 ML IV SCH (15:19)
[2021-02-17] MEDS ORDERED: INSULIN GLARGINE 100 UNIT/ML SUBCUT SCH (21:00)
[2021-02-18] MEDS: INSULIN LISPRO 100 UNIT/ML SUBCUT SCH ×4 (00:38→17:54)
[2021-02-18] MEDS: PROMETHAZINE 25 MG/1 ML VIAL IM SCH (04:17)
[2021-02-18 05:15] LABS: Basophils % 0.3 % (0.0-0.8); Eosinophils # 0.3 10*3/uL (0.0-0.87); Eosinophils % 2.6 % (0.00-10.9); Hematocrit 33.2 VOL% (35.7-47.0); Hemoglobin 11.3 GM/DL (12.0-16.0); Lymphocytes # 2.6 10*3/uL (1.4-4.0); Lymphocytes % 26.1 % (21.3-54.2); Mean Platelet Volume 10.8 FL (9.6-12.0); Platelet Count 298 T/CUMM (130-400); Red Blood Count 3.73 MC/CUMM (3.8-5.5); Red Cell Distribution Width 13.1 % (9.3-17.3); White Blood Count 10.1 T/CUMM (4-12)
[2021-02-18 05:45] LABS: Calcium 8.1 MG/DL (8.5-10.1); Potassium 3.8 MMOL/L (3.5-5.1)
[2021-02-18] MEDS: METOCLOPRAMIDE 10 MG/2 ML VIAL IV SCH ×3 (05:57→22:10)
[2021-02-18] MEDS ORDERED: PROMETHAZINE 25 MG TABLET PO PRN (07:20)
[2021-02-18] MEDS: PANTOPRAZOLE 40 MG VIAL IV SCH ×2 (08:20→21:28)
[2021-02-18] MEDS: PROMETHAZINE 25 MG TABLET PO SCH ×3 (10:33→22:30)
[2021-02-18] MEDS: CALCIUM ACETATE 667 MG CAPSULE PO SCH ×3 (10:51→17:17)
[2021-02-18] MEDS: DOCUSATE SODIUM 100 MG CAPSULE PO SCH ×2 (10:51→21:08)
[2021-02-18] MEDS: MAGNESIUM OXIDE 400 MG TABLET PO SCH (10:51)
[2021-02-18] MEDS: POTASSIUM CHLORIDE 20 MEQ TABLET PO SCH (10:51)
[2021-02-18] MEDS: FAT EMULSION 20% 250 ML IV SCH (14:05)
[2021-02-18] MEDS: AMINO ACIDS/DEXT/LYTES 4.25-5% 2,000 ML IV SCH (15:30)
[2021-02-18] MEDS: PROMETHAZINE 12.5 MG SUPP RECTAL PRN ×2 (17:21→22:17)
[2021-02-18] MEDS ORDERED: INSULIN GLARGINE 100 UNIT/ML SUBCUT SCH (21:00)
[2021-02-19] MEDS: PROMETHAZINE 25 MG TABLET PO SCH ×3 (04:20→18:25)
[2021-02-19] MEDS: PROMETHAZINE 12.5 MG SUPP RECTAL PRN ×4 (04:20→22:00)
[2021-02-19 05:51] LABS: Basophils % 0.3 % (0.0-0.8); Eosinophils # 0.2 10*3/uL (0.0-0.87); Hematocrit 35.2 VOL% (35.7-47.0); Hemoglobin 11.6 GM/DL (12.0-16.0); Immature Granulocytes Absolute 0.12 #; Lymphocytes # 2.2 10*3/uL (1.4-4.0); Lymphocytes % 18.6 % (21.3-54.2); Mean Corpuscular Volume 91.4 FL (87-102); Mean Platelet Volume 10.5 FL (9.6-12.0); Monocytes % 9.9 % (1.7-12.7); Neutrophils % 68.2 % (38.7-73.9); Platelet Count 290 T/CUMM (130-400); Red Blood Count 3.85 MC/CUMM (3.8-5.5); White Blood Count 11.8 T/CUMM (4-12)
[2021-02-19] MEDS: METOCLOPRAMIDE 10 MG/2 ML VIAL IV SCH ×2 (06:06→16:42)
[2021-02-19] MEDS: AMINO ACIDS/DEXT/LYTES 4.25-5% 2,000 ML IV SCH ×2 (06:07→20:25)
[2021-02-19] MEDS: INSULIN LISPRO 100 UNIT/ML SUBCUT SCH ×4 (06:07→18:38)
[2021-02-19 06:08] LABS: Calcium 8.4 MG/DL (8.5-10.1); Osmolality,Calculated 277.4 MOS/KG (273-304); Potassium 4.4 MMOL/L (3.5-5.1)
[2021-02-19] MEDS: SCOPOLAMINE 1.5 MG PATCH TRANSDERM SCH (10:03)
[2021-02-19] MEDS: PANTOPRAZOLE 40 MG VIAL IV SCH ×2 (10:08→21:41)
[2021-02-19] MEDS: POTASSIUM CHLORIDE 20 MEQ TABLET PO SCH (12:28)
[2021-02-19] MEDS: DOCUSATE SODIUM 100 MG CAPSULE PO SCH ×2 (12:28→22:04)
[2021-02-19] MEDS: MAGNESIUM OXIDE 400 MG TABLET PO SCH (12:28)
[2021-02-19] MEDS: CALCIUM ACETATE 667 MG CAPSULE PO SCH ×3 (12:28→18:25)
[2021-02-19] MEDS: FAT EMULSION 20% 250 ML IV SCH (20:23)
[2021-02-19] MEDS ORDERED: INSULIN GLARGINE 100 UNIT/ML SUBCUT SCH (21:00)
[2021-02-20] MEDS: INSULIN LISPRO 100 UNIT/ML SUBCUT SCH ×3 (00:06→12:21)
[2021-02-20] MEDS: METOCLOPRAMIDE 10 MG/2 ML VIAL IV SCH ×2 (00:14→08:03)
[2021-02-20] MEDS: PROMETHAZINE 25 MG TABLET PO SCH ×3 (00:30→14:59)
[2021-02-20 06:15] LABS: Calcium 8.5 MG/DL (8.5-10.1); Osmolality,Calculated 279.4 MOS/KG (273-304); Potassium 4.3 MMOL/L (3.5-5.1)
[2021-02-20] MEDS: PANTOPRAZOLE 40 MG VIAL IV SCH (08:08)
[2021-02-20] MEDS: PROMETHAZINE 12.5 MG SUPP RECTAL PRN (08:43)
[2021-02-20] MEDS: DOCUSATE SODIUM 100 MG CAPSULE PO SCH (09:51)
[2021-02-20] MEDS: POTASSIUM CHLORIDE 20 MEQ TABLET PO SCH (09:51)
[2021-02-20] MEDS: MAGNESIUM OXIDE 400 MG TABLET PO SCH (09:51)
[2021-02-20] MEDS: CALCIUM ACETATE 667 MG CAPSULE PO SCH ×2 (09:51→14:59)
[2021-02-20 12:27] VITALS: BP 111/79
[2021-02-20] MEDS ORDERED: INSULIN GLARGINE 100 UNIT/ML SUBCUT SCH (21:00)
== END 2021-02-20 14:05 | disposition home or self-care (01) | DRG 831 ==
LOC: EDUNIT# → EDBD → N.ED 16:33 → N.EDINP 22:48 → MERGE 22:48 → N.OB 02-10 01:09
PROVIDERS: ADMIT Obstetrics & Gynecology; ATTEND Obstetrics & Gynecology

== ENCOUNTER 2021-02-24 11:25 | Observation (INO) ==
[2021-02-24] MEDS: LACTATED RINGERS 1,000 ML IV SCH ×2 (11:40→18:20)
[2021-02-24] MEDS ORDERED: GLUCAGON 1 MG VIAL IM PRN (11:48)
[2021-02-24] MEDS ORDERED: DEXTROSE 50% 25 GM/50 ML SYRINGE IV PRN (11:48)
[2021-02-24] MEDS ORDERED: SCOPOLAMINE 1.5 MG PATCH TRANSDERM ONE (11:50)
[2021-02-24] MEDS: PROMETHAZINE 25 MG/1 ML VIAL IM SCH ×2 (12:16→18:13)
[2021-02-24] MEDS: METOCLOPRAMIDE 10 MG/2 ML VIAL IV SCH ×2 (14:46→21:59)
[2021-02-24] MEDS ORDERED: PROMETHAZINE 25 MG SUPP RECTAL PRN (15:55)
[2021-02-24] MEDS: PANTOPRAZOLE 40 MG VIAL IV SCH (16:40)
[2021-02-25] MEDS: PROMETHAZINE 25 MG/1 ML VIAL IM SCH ×4 (00:06→18:00)
[2021-02-25] MEDS: PANTOPRAZOLE 40 MG VIAL IV SCH ×3 (00:12→20:58)
[2021-02-25] MEDS: LACTATED RINGERS 1,000 ML IV SCH ×4 (01:39→19:09)
[2021-02-25] MEDS: METOCLOPRAMIDE 10 MG/2 ML VIAL IV SCH ×3 (06:40→22:12)
[2021-02-25] MEDS ORDERED: GLUCAGON 1 MG VIAL IM PRN (11:07)
[2021-02-25] MEDS ORDERED: DEXTROSE 50% 25 GM/50 ML VIAL IV PRN (11:07)
[2021-02-25] MEDS ORDERED: DEXTROSE 10% 250 ML IV PRN (11:12)
[2021-02-25] MEDS ORDERED: INSULIN LISPRO 100 UNIT/ML SUBCUT SCH (11:30)
[2021-02-25] MEDS: ONDANSETRON 4 MG/2 ML VIAL IV PRN (13:10)
[2021-02-25] MEDS: INSULIN LISPRO 100 UNIT/ML SUBCUT SCH (18:31)
[2021-02-26] MEDS: PROMETHAZINE 25 MG/1 ML VIAL IM SCH ×3 (00:18→12:19)
[2021-02-26] MEDS: INSULIN LISPRO 100 UNIT/ML SUBCUT SCH ×3 (00:53→12:23)
[2021-02-26] MEDS: LACTATED RINGERS 1,000 ML IV SCH ×2 (01:39→08:10)
[2021-02-26] MEDS: METOCLOPRAMIDE 10 MG/2 ML VIAL IV SCH (06:17)
[2021-02-26 07:30] VITALS: BP 130/75
[2021-02-26] MEDS: PANTOPRAZOLE 40 MG VIAL IV SCH (09:29)
[2021-02-26] MEDS: ONDANSETRON 4 MG/2 ML VIAL IV PRN (09:40)
== END 2021-02-26 13:16 | disposition home or self-care (01) ==
LOC: N.OB
PROVIDERS: ADMIT Obstetrics & Gynecology; ATTEND Obstetrics & Gynecology